=== PATIENT | female | born 1960 | race Caucasian/White ===

== ENCOUNTER → 2016-04-27 | Outpatient (CLI) | payer MEDICARE, OTHER ==
[~2016-04-27] MED LIST: AMIT50TA3 PO; BACL10TA PO; CARI350T20 PO; CLIN1CAP6 PO; CYMB60CA PO; DULO1CAP3 PO; ESTR.625 PO; FENTANYL PUMP; FURO1TAB62 PO; GABA400C5 PO; HYDR-3366 PO; IBUP800T23 PO; LACTCAP8 PO; MIGR4SPR; PERC10TA27 PO; SOMA350T PO; TOPA100T11 PO; TOPI1TAB31 PO; TOPI1TAB36 PO
[2016-04-27 14:50] LABS: C. DIFF EPI 027 PRESUMPTIVE NEGATIVE (NEGATIVE); C. DIFF TOXIN PCR NEGATIVE (NEGATIVE)
== END ==
LOC: CLAB 10:46
PROVIDERS: ATTEND Internal Medicine Infectious Disease
DX: R19.7 Diarrhea, unspecified (principal); L03.311 Cellulitis of abdominal wall; E11.9 Type 2 diabetes mellitus without complications; I10 Essential (primary) hypertension; T81.4XXA Infection following a procedure, initial encounter; Z79.2 Long term (current) use of antibiotics
CPT/HCPCS: 87493

== ENCOUNTER 2016-06-15 10:07 | Emergency (ER) | payer MEDICARE, MEDICAID ==
[~2016-06-15] VITALS: Ht 165.1 cm; Wt 72.5 kg
[~2016-06-15 10:07] MED LIST changes: -CYMB60CA PO; -FENTANYL PUMP; -PERC10TA27 PO; -SOMA350T PO; -TOPA100T11 PO; -TOPI1TAB36 PO
[2016-06-15 10:10] VITALS: BP 160/77; PULSE 54; RESP 24; TEMP 97.8; O2SAT 100
[2016-06-15] MEDS ORDERED: CYMB60CA PO (10:56)
[2016-06-15] MEDS ORDERED: FENTANYL PUMP (10:56)
[2016-06-15] MEDS ORDERED: SOMA350T PO (10:56)
[2016-06-15] MEDS ORDERED: DIATRIZOATE MEGLUM/DIATRIZOATE SOD 9 ML CUP ONE ×2 (11:30→12:01)
[2016-06-15] MEDS ORDERED: SODIUM CHLOR 0.9% 1000 ML INJ 1,000 ML IV SCH (11:39)
[2016-06-15 11:43] VITALS: RESP 18; O2SAT 98
[2016-06-15] MEDS ORDERED: SODIUM CHLORIDE 0.9% FLUSH 10 ML FLUSH IV FLUSH PRN (11:45)
[2016-06-15 12:08] LABS: AUTOMATED NEUTROPHIL # 1.9 TH/MM3 (1.8-7.7); BASOPHIL % 0.6 % (0.0-2.0); EOSINOPHIL # 0.2 TH/MM3 (0-0.4); EOSINOPHIL % 4.6 % (0.0-4.0); HEMATOCRIT 37.2 % (35.0-46.0); HEMO FLAGS DIFF FINAL; LYMPHOCYTE # 1.4 TH/MM3 (1.0-4.8); MEAN CELL VOLUME 84.2 FL (80.0-100.0); MEAN CORPUSCULAR HEMOGLOBIN 27.1 PG (27.0-34.0); MEAN CORPUSCULAR HGB CONC 32.2 % (32.0-36.0); MONO % 7.6 % (0.0-8.0); NEUT % 50.2 % (16.0-70.0); PLATELET COUNT 189 TH/MM3 (150-450); RED BLOOD COUNT 4.42 MIL/MM3 (4.00-5.30); RED CELL DISTRIBUTION WIDTH 13.7 % (11.6-17.2); WHITE BLOOD COUNT 3.7 TH/MM3 (4.0-11.0)
--- NOTE | 2016-06-15 12:21 | PD ---
HPI Chief Complaint: Abdominal Pain Time Seen by Provider: 10:56 Travel History International Travel<30 days: No Contact w/Intl Traveler<30days: No Traveled to known affect area: No History of Present Illness HPI The patient is a 56-year-old female who presents to the emergency department for abdominal pain. The patient states she developed abdominal pain approximately one week ago in the left inguinal region. The patient originally thought she had enlarged lymph nodes and saw her infectious disease doctor. The patient was then referred to see a surgeon, however, followed up with Dr. Novak. The patient states she was advised she might have a femoral hernia/ inguinal hernia and was referred to see surgery, Dr. Wiggins. However, the patient is unable to get an appointment with Dr. Wiggins until next month. The patient states the pain is located in the left inguinal region, worse with standing and walking, slightly alleviated at rest. She states occasionally there is a bulge in the affected area that will reduce when she lays supine. The patient was referred to the emergency department today for continuing pain with inability to see surgery until next month. She denies any dysuria, frequency, or urgency. She does have a history of a pain pump located in the left aspect of her abdomen with previous infection, but denies any redness or pain around the pain pump. PFSH Past Medical History Asthma: Yes Autoimmune Disease: No Blood Disorders: No Anxiety: Yes Depression: Yes Heart Rhythm Problems: No Cancer: No Cardiovascular Problems: No High Cholesterol: No Chemotherapy: No Chest Pain: No Congestive Heart Failure: No COPD: Yes Cerebrovascular Accident: No Diabetes: Yes (HX- NOT ON MEDS- RESOLVED WITH BY-PASS SX) Diminished Hearing: No Endocrine: Yes Gastrointestinal Disorders: Yes GERD: Yes Glaucoma: No Genitourinary: Yes Headaches: Yes Hepatitis: No Hiatal Hernia: Yes (GERD, ULCER DIS.) Herniated Disk: Yes (DEGENERAT DISC DISEASE) Hypertension: Yes Immune Disorder: No Implanted Vascular Access Dvce: Yes Kidney Stones: No Musculoskeletal: Yes (DEGENERATIVE DISC DISEASE) Neurologic: Yes Psychiatric: Yes Reproductive: No Respiratory: Yes (ASTHMA ; SLEEP APNEA) Migraines: No Myocardial Infarction: No Radiation Therapy: No Renal Failure: No Seizures: No Sickle Cell Disease: No Sleep Apnea: Yes (BI PAP AT HS) Thyroid Disease: No Ulcer: Yes (REMOTE IN PAST) : 4 Para: 1 Miscarriage: 2 : 0 Past Surgical History Abdominal Surgery: Yes (LAP. NUVIA, LAP GASTRIC BYPASS) AICD: No Appendectomy: No Arteriovenous Shunt: No Body Medical Devices: PLATES AND SCREWS IN CERVICAL SPINE Cardiac Surgery: No Section: Yes Cholecystectomy: Yes Ear Surgery: No Endocrine Surgery: No Eye Surgery: No Genitourinary Surgery: No Gynecologic Surgery: Yes (C SECTION ; HYSTEROSCOPY AND D&C) Hysterectomy: Yes Insulin Pump: No Joint Replacement: No Neurologic Surgery: Yes (BACK SX 2CERVICAL FUSION AND DECOMPRESSION) Oral Surgery: No Pacemaker: No Other Surgery: Yes Social History Alcohol Use: No Tobacco Use: Yes (1 PACK PER WEEK) Substance Use: No Allergies-Medications (Allergen,Severity, Reaction): Coded Allergies: Contrast Media (Verified Allergy, Severe, LOSS OF CONCIOUSNESS, 06/15/16) Demerol (Verified Allergy, Severe, DECREASE IN VITAL SIGNS, 06/15/16) Dilaudid (Verified Allergy, Severe, 06/15/16) Gadodiamide (Verified Allergy, Severe, Patient states elevates blood pressure, 06/15/16) Morphine (Verified Allergy, Severe, 06/15/16) Reglan (Verified Allergy, Severe, RASH, 06/15/16) Dane (Verified Allergy, Mild, Rash, 06/15/16) Reported Meds & Prescriptions Reported Meds & Active Scripts Active Topiramate 100 Mg Tab 100 Mg PO TID Lasix (Furosemide) 20 Mg Tab 20 Mg PO DAILY Reported [Fentanyl Pump] Soma (Carisoprodol) 350 Mg Tab 350 Mg PO QID PRN Cymbalta DR (Duloxetine HCl) 60 Mg Capdr 60 Mg PO DAILY [place] (Hydrocodone-Acetaminophen) 10-325 Mg Tab 1 Tab PO Q6H PRN Premarin (Estrogens Conjugated) 0.625 Mg Tab 0.625 Mg PO DAILY Baclofen 10 Mg Tab 10 Mg PO Q8HR PRN Gabapentin 400 Mg Cap 400 Cap PO TID PRN Review of Systems Except as stated in HPI: all other systems reviewed are Neg General / Constitutional: No: Fever Cardiovascular: No: Chest Pain or Discomfort Respiratory: No: Shortness of Breath Gastrointestinal: Positive: Abdominal Pain, No: Nausea, Vomiting Genitourinary: Positive: Pelvic Pain (left inguinal pain) Musculoskeletal: Positive: Edema (intermittent dependent edema to the lower legs) Physical Exam Narrative GENERAL: Awake, alert, pleasant 56-year-old female who appears her stated age and is in no acute respiratory distress. SKIN: Focused skin assessment warm/dry. HEAD: Atraumatic. Normocephalic. EYES: Pupils equal and round. No scleral icterus. No injection or drainage. ENT: No nasal bleeding or discharge. Mucous membranes pink and moist. NECK: Trachea midline. No JVD. CARDIOVASCULAR: Regular rate and rhythm. No murmur appreciated. RESPIRATORY: No accessory muscle use. Clear to auscultation. Breath sounds equal bilaterally. GASTROINTESTINAL: Abdomen soft, non-tender, nondistended. Pain pump noted left aspect of the abdomen. No obvious femoral hernia. Pelvic: Exam was performed in the presence of a female nurse. Inguinal examination reveals cordlike structure in the left mid inguinal region which is tender to palpation, does not appear fixed underlying tissue. When patient stands up and Valsalva's, there is no obvious bulge in the left inguinal region. MUSCULOSKELETAL: No obvious deformities. No clubbing. No cyanosis. No edema. NEUROLOGICAL: Awake and alert. No obvious cranial nerve deficits. Motor grossly within normal limits. Normal speech. PSYCHIATRIC: Appropriate mood and affect; insight and judgment normal. Data Data Last Documented VS Vital Signs Date Time Temp Pulse Resp B/P Pulse Ox O2 Delivery O2 Flow Rate FiO2 06/15/16 14:09 92 18 163/70 98 Room Air 06/15/16 10:10 97.8 Orders Diatrizoate Liq ( Gastrolupis Liq) (06/15/16 11:30) Complete Blood Count With Diff (06/15/16 11:39) Comprehensive Metabolic Panel (06/15/16 11:39) Lipase (06/15/16 11:39) Urinalysis - C+S If Indicated (06/15/16 11:39) Iv Access Insert/Monitor (06/15/16 11:39) Ecg Monitoring (06/15/16 11:39) Oximetry (06/15/16 11:39) Sodium Chlor 0.9% 1000 Ml Inj (Ns 1000 M (06/15/16 11:39) Sodium Chloride 0.9% Flush (Ns Flush) (06/15/16 11:45) Ct Abd/Pel W/O Iv Contrast (06/15/16 ) Oral Contrast - Adult (06/15/16 11:42) Diatrizoate Liq ([place] Liq) (06/15/16 12:01) Oxycodone-Acetamin 10-325 Mg (Percocet 1 (06/15/16 13:15) Labs Laboratory Tests Test 06/15/16 11:53 White Blood Count 3.7 TH/MM3 Red Blood Count 4.42 MIL/MM3 Hemoglobin 12.0 GM/DL Hematocrit 37.2 % Mean Corpuscular Volume 84.2 FL Mean Corpuscular Hemoglobin 27.1 PG Mean Corpuscular Hemoglobin 32.2 % Concent Red Cell Distribution Width 13.7 % Platelet Count 189 TH/MM3 Mean Platelet Volume 7.9 FL Neutrophils (%) (Auto) 50.2 % Lymphocytes (%) (Auto) 37.0 % Monocytes (%) (Auto) 7.6 % Eosinophils (%) (Auto) 4.6 % Basophils (%) (Auto) 0.6 % Neutrophils # (Auto) 1.9 TH/MM3 Lymphocytes # (Auto) 1.4 TH/MM3 Monocytes # (Auto) 0.3 TH/MM3 Eosinophils # (Auto) 0.2 TH/MM3 Basophils # (Auto) 0.0 TH/MM3 CBC Comment DIFF FINAL Differential Comment Urine Color YELLOW Urine Turbidity CLEAR Urine pH 7.0 Urine Specific [place] 1.027 Urine Protein TRACE mg/dL Urine Glucose (UA) NEG mg/dL Urine Ketones NEG mg/dL Urine Occult Blood NEG Urine Nitrite NEG Urine Bilirubin NEG Urine Urobilinogen 2.0 MG/DL Urine Leukocyte Esterase NEG Urine RBC 1 /hpf Urine WBC LESS THAN 1 /hpf Urine Squamous Epithelial <1 /hpf Cells Urine Mucus FEW /lpf Microscopic Urinalysis Comment CULT NOT INDICATED Sodium Level 142 MEQ/L Potassium Level 3.8 MEQ/L Chloride Level 107 MEQ/L Carbon Dioxide Level 28.6 MEQ/L Anion Gap 6 MEQ/L Blood Urea Nitrogen 16 MG/DL Creatinine 0.55 MG/DL Estimat Glomerular Filtration 114 ML/MIN Rate Random Glucose 91 MG/DL Calcium Level 8.6 MG/DL Total Bilirubin 0.4 MG/DL Aspartate Amino Transf 25 U/L (AST/SGOT) Alanine Aminotransferase 23 U/L (ALT/SGPT) Alkaline Phosphatase 105 U/L Total Protein 6.5 GM/DL Albumin 3.5 GM/DL Lipase 101 U/L [facility] Medical Decision Making Medical Screen Exam Complete: Yes Emergency Medical Condition: Yes Medical Record Reviewed: Yes Interpretation(s) Laboratory Tests Test 06/15/16 11:53 White Blood Count 3.7 TH/MM3 Red Blood Count 4.42 MIL/MM3 Hemoglobin 12.0 GM/DL Hematocrit 37.2 % Mean Corpuscular Volume 84.2 FL Mean Corpuscular Hemoglobin 27.1 PG Mean Corpuscular Hemoglobin 32.2 % Concent Red Cell Distribution Width 13.7 % Platelet Count 189 TH/MM3 Mean Platelet Volume 7.9 FL Neutrophils (%) (Auto) 50.2 % Lymphocytes (%) (Auto) 37.0 % Monocytes (%) (Auto) 7.6 % Eosinophils (%) (Auto) 4.6 % Basophils (%) (Auto) 0.6 % Neutrophils # (Auto) 1.9 TH/MM3 Lymphocytes # (Auto) 1.4 TH/MM3 Monocytes # (Auto) 0.3 TH/MM3 Eosinophils # (Auto) 0.2 TH/MM3 Basophils # (Auto) 0.0 TH/MM3 CBC Comment DIFF FINAL Differential Comment Urine Color YELLOW Urine Turbidity CLEAR Urine pH 7.0 Urine Specific [place] 1.027 Urine Protein TRACE mg/dL Urine Glucose (UA) NEG mg/dL Urine Ketones NEG mg/dL Urine Occult Blood NEG Urine Nitrite NEG Urine Bilirubin NEG Urine Urobilinogen 2.0 MG/DL Urine Leukocyte Esterase NEG Urine RBC 1 /hpf Urine WBC LESS THAN 1 /hpf Urine Squamous Epithelial <1 /hpf Cells Urine Mucus FEW /lpf Microscopic Urinalysis Comment CULT NOT INDICATED Sodium Level 142 MEQ/L Potassium Level 3.8 MEQ/L Chloride Level 107 MEQ/L Carbon Dioxide Level 28.6 MEQ/L Anion Gap 6 MEQ/L Blood Urea Nitrogen 16 MG/DL Creatinine 0.55 MG/DL Estimat Glomerular Filtration 114 ML/MIN Rate Random Glucose 91 MG/DL Calcium Level 8.6 MG/DL Total Bilirubin 0.4 MG/DL Aspartate Amino Transf 25 U/L (AST/SGOT) Alanine Aminotransferase 23 U/L (ALT/SGPT) Alkaline Phosphatase 105 U/L Total Protein 6.5 GM/DL Albumin 3.5 GM/DL Lipase 101 U/L CT of the abdomen and pelvis reveals no evidence of inguinal hernia. Nonspecific gas pattern which may represent ileus or gastroenteritis. Postsurgical changes status post gastric surgery with small hiatal hernia. Differential Diagnosis Differential diagnosis includes lymphadenopathy, femoral hernia, inguinal hernia , tendinitis, inguinal strain, inguinal sprain. Narrative Course IV was established, labs were drawn and sent, and the patient was placed on cardiac telemetry monitoring and continuous pulse oximetry monitoring. The patient did not have an obvious femoral hernia upon physical examination, has intermittent pain and bulging which she cannot reproduce, therefore, CT of the abdomen and pelvis with oral contrast was ordered. Laboratory evaluation is unremarkable. CT of the abdomen and pelvis is negative for any evidence of inguinal hernia. The patient did request pain medication, currently has a fentanyl pump in place, therefore, was administered Percocet. CT reveals no acute surgical emergency, patient will be referred to see Gen. surgery on an outpatient basis. The patient states she has an appointment with Dr. Wiggins on June 26. Therefore, a courtesy call was placed to Dr. Wiggins at 2:31 PM. I discussed the patient with Dr. Wiggins at 2:35 PM who agrees the patient can follow-up outpatient. I will write for Percocet for pain above and beyond her normal pain, she is advised if she has pain to rest, apply ice and/or heat to the affected area. Patient agrees and understands. Diagnosis Primary Impression: Left inguinal pain Patient Instructions: General Instructions Additional Instructions: Please provide a patient a copy of her CT results and lab results at discharge. Follow-up with Dr. Wiggins as directed. If pain persists, rest, apply ice and/ or heat, and Percocet as needed for pain. Med/Other Pt SpecificInfo: Prescription(s) given Scripts Oxycodone-Acetaminophen (Percocet)10-325 mg Tab1 Tab PO Q6H PRN (PAIN) #15 TAB Ref 0 Prov:Josesito Mariscal MD 06/15/16 Disposition: 01 DISCHARGE HOME Condition: Stable Josesito Mariscal MD Jun 15, 2016 12:21
[2016-06-15 12:29] LABS: BLOOD, URINE NEG (NEG); COMMENT (UR) CULT NOT INDICATED; CULTURE IF INDICATED CULT NOT INDICATED; GLUCOSE,URINE NEG (NEG); KETONE, URINE NEG (NEG); MUCUS URINE FEW /lpf (OCC); NITRITE,URINE NEG (NEG); SQUAMOUS EPITHELIAL CELL URINE <1 /hpf (0-5); URINE COLOR YELLOW (YELLW/STRAW)
[2016-06-15 12:33] LABS: ANION GAP 6 MEQ/L (5-15); AST (GOT) 25 U/L (15-37); BICARBONATE 28.6 MEQ/L (21.0-32.0); BLOOD UREA NITROGEN 16 MG/DL (7-18); CHLORIDE 107 MEQ/L (98-107); GLOMERULAR FILTRATION RATE 114 ML/MIN (>89); POTASSIUM 3.8 MEQ/L (3.5-5.1); SODIUM (NA) 142 MEQ/L (136-145)
[2016-06-15 12:36] LABS: ALKALINE PHOSPHATASE 105 U/L (45-117); ALT (GPT) 23 U/L (10-53); TOTAL BILIRUBIN ADULT 0.4 MG/DL (0.2-1.0)
[2016-06-15] MEDS ORDERED: oxyCODONE/ACETAMINOPHEN 10 MG/325 MG TAB PO ONE (13:15)
[2016-06-15 14:09] VITALS: BP 163/70; PULSE 92; RESP 18; O2SAT 98
--- NOTE | 2016-06-15 14:25 | RADRPT ---
EXAM DATE/TIME: 06/15/2016 13:44 [facility] COMPARISON: No previous studies available for comparison. INDICATIONS : Left inguinal pain, possible hernia. ORAL CONTRAST: No oral contrast ingested. RADIATION DOSE: 9.96 CTDIvol (mGy) MEDICAL HISTORY : Hypertension. Hernia, hiatal. SURGICAL HISTORY : Cholecystectomy. Gastric bypass. section. ENCOUNTER: Initial ACUITY: 1 day PAIN SCALE: 0/10 LOCATION: Left pelvis TECHNIQUE: Volumetric scanning of the abdomen and pelvis was performed. Using automated exposure control and ad justment of the mA and/or kV according to patient size, radiation dose was kept as low as reasonably achievable to obtain optimal diagnostic quality images. FINDINGS: LOWER LUNGS: The visualized lower lungs are clear. LIVER: Homogeneous density without lesion. There is no dilation of the biliary tree. No calcified gallston es. SPLEEN: Normal size without lesion. PANCREAS: Within normal limits. KIDNEYS: Normal in size and shape. There is no mass, stone, or hydronephrosis. ADRENAL GLANDS: Within normal limits. VASCULAR: There is no aortic aneurysm. BOWEL/MESENTERY: Postsurgical changes are noted status post gastric surgery. There is a small hiatal hernia. There is a nonspecific bowel gas pattern with multiple loops of nondilated air-containing small bowel multiple small air-fluid levels. There is no free air or fluid. Only the mid and portions of the distal small bowel are opacified. There are multiple unopacified loops of bowel including the entire colon. There is a lack of mesenteric fat between the bowel loops limiting visualization as well. There is streak artifact from a stimulator device. ABDOMINAL WALL: Within normal limits. RETROPERITONEUM: There is no lymphadenopathy. BLADDER: No wall thickening or mass. REPRODUCTIVE: Within normal limits. INGUINAL: There is no lymphadenopathy or hernia. MUSCULOSKELETAL: Within normal limits for patient age. CONCLUSION: 1. No evidence of inguinal hernia. 2. Nonspecific gas pattern which may represent ileus or gastroenteritis. 3. Postsurgical changes status post gastric surgery with small hiatal hernia. Kaleb Ogden MD on June 15, 2016 at 14:19 Board Certified Radiologist. This report was verified electronically.
[2016-06-15] MEDS ORDERED: PERC10TA27 PO (14:49)
[2016-08-01] MEDS ORDERED: TOPI1TAB36 PO (10:13)
[2016-08-10] MEDS ORDERED: TOPA100T11 PO (10:02)
== END 2016-06-15 15:28 | disposition home or self-care (01) ==
LOC: NEPE 10:07
DX: R10.32 Left lower quadrant pain (principal)
CPT/HCPCS: 74176; 80053; 81001; 83690; 85025; 99284; J7030; Q9963

== ENCOUNTER → 2016-07-12 | Outpatient (CLI) | payer MEDICARE ==
[~2016-07-12] MED LIST changes: -AMIT50TA3 PO; -CARI350T20 PO; -CLIN1CAP6 PO; +CYMB60CA PO; -DULO1CAP3 PO; +FENTANYL PUMP; -IBUP800T23 PO; -LACTCAP8 PO; -MIGR4SPR; +PERC10TA27 PO; +SOMA350T PO; +TOPA100T11 PO; +TOPI1TAB36 PO
[2016-07-12 12:42] LABS: HEMATOCRIT 39.1 % (35.0-46.0); MEAN CORPUSCULAR HGB CONC 32.2 % (32.0-36.0); PLATELET COUNT 213 TH/MM3 (150-450); RED BLOOD COUNT 4.65 MIL/MM3 (4.00-5.30); RED CELL DISTRIBUTION WIDTH 13.2 % (11.6-17.2); REVIEW FLAG FINAL; WHITE BLOOD COUNT 3.8 TH/MM3 (4.0-11.0)
[2016-07-12 13:26] LABS: BICARBONATE 28.4 MEQ/L (21.0-32.0); FREE T3 2.2 PG/ML (2.18-3.98); FREE T4 1.04 NG/DL (0.76-1.46); POTASSIUM 4.5 MEQ/L (3.5-5.1)
== END ==
LOC: CLAB 12:04
PROVIDERS: ATTEND Internal Medicine Cardiovascular Disease
DX: R60.9 Edema, unspecified (principal); R59.1 Generalized enlarged lymph nodes; R06.02 Shortness of breath; R07.9 Chest pain, unspecified; K59.1 Functional diarrhea
CPT/HCPCS: 36415; 80048; 82378; 83880; 84439; 84443; 84481; 85027

== ENCOUNTER 2017-02-08 09:15 | Emergency (ER) | payer MEDICARE, MEDICAID ==
[~2017-02-08] VITALS: Ht 165.1 cm; Wt 68.0 kg
[~2017-02-08 09:15] MED LIST changes: -AUGM875T3 PO
[2017-02-08 09:16] VITALS: BP 184/82; PULSE 60; RESP 18; TEMP 98.4; O2SAT 97
--- NOTE | 2017-02-08 09:44 | PD ---
HPI Chief Complaint: Bite or Sting Time Seen by Provider: 09:42 Travel History International Travel<30 days: No Contact w/Intl Traveler<30days: No Traveled to known affect area: No History of Present Illness HPI 56-year-old female presents to emergency department with bites to her left thumb and right hand after being bit by a feral cat this morning. Patient states that she was trying to remove the cat from under the house when she was bit. Patient was able to contain the cat and plans on taking it to animal control. Patient states that the animal is feral so she does not know the vaccination status of the animal. She has seen the cat around the neighborhood and does not report any erratic behavior. Patient denies fever or chills. Patient takes multiple medications for her chronic back pain but otherwise states she is healthy. Patient does not know the last time she had a tetanus vaccination. PFSH Past Medical History Asthma: Yes Autoimmune Disease: No Blood Disorders: No Anxiety: Yes Depression: Yes Heart Rhythm Problems: No Cancer: No Cardiovascular Problems: No High Cholesterol: No Chemotherapy: No Chest Pain: No Congestive Heart Failure: No COPD: Yes Cerebrovascular Accident: No Diabetes: Yes (HX- NOT ON MEDS- RESOLVED WITH BY-PASS SX) Diminished Hearing: No Endocrine: Yes Gastrointestinal Disorders: Yes GERD: Yes Glaucoma: No Genitourinary: Yes Headaches: Yes Hepatitis: No Hiatal Hernia: Yes (GERD, ULCER DIS.) Herniated Disk: Yes (DEGENERAT DISC DISEASE) Immune Disorder: No Implanted Vascular Access Dvce: Yes Kidney Stones: No Musculoskeletal: Yes (DEGENERATIVE DISC DISEASE) Neurologic: Yes Psychiatric: Yes Reproductive: No Respiratory: Yes (ASTHMA ; SLEEP APNEA) Migraines: No Myocardial Infarction: No Radiation Therapy: No Renal Failure: No Seizures: No Sickle Cell Disease: No Sleep Apnea: Yes (BI PAP AT HS) Thyroid Disease: No Ulcer: Yes (REMOTE IN PAST) ?: Not : 4 Para: 1 Miscarriage: 2 : 0 Past Surgical History Abdominal Surgery: Yes (LAP. NUVIA, LAP GASTRIC BYPASS) AICD: No Appendectomy: No Arteriovenous Shunt: No Body Medical Devices: PLATES AND SCREWS IN CERVICAL SPINE Cardiac Surgery: No Section: Yes Cholecystectomy: Yes Ear Surgery: No Endocrine Surgery: No Eye Surgery: No Genitourinary Surgery: No Gynecologic Surgery: Yes (C SECTION ; HYSTEROSCOPY AND D&C) Hysterectomy: Yes Insulin Pump: No Joint Replacement: No Neurologic Surgery: Yes (LUMBAR LAMINECTOMY X 2; ANTERIOR CERVICAL FUSION) Oral Surgery: No Pacemaker: No Other Surgery: Yes Social History Alcohol Use: No Tobacco Use: No Substance Use: No Allergies-Medications (Allergen,Severity, Reaction): Coded Allergies: diatrizoate meglumine (Verified Allergy, Severe, LOSS OF CONCIOUSNESS, ) gadobenic acid (Verified Allergy, Severe, LOSS OF CONCIOUSNESS, 02/08/17) gadodiamide (Verified Allergy, Severe, Patient states elevates blood pressure, 02/08/17) gadoteridol (Verified Allergy, Severe, LOSS OF CONCIOUSNESS, 02/08/17) hydromorphone (Verified Allergy, Severe, 02/08/17) iodixanol (Verified Allergy, Severe, LOSS OF CONCIOUSNESS, 02/08/17) iohexol (Verified Allergy, Severe, LOSS OF CONCIOUSNESS, 02/08/17) meperidine (Verified Allergy, Severe, DECREASE IN VITAL SIGNS, 02/08/17) metoclopramide (Verified Allergy, Severe, RASH, 02/08/17) morphine (Verified Allergy, Severe, 02/08/17) terrance (Verified Allergy, Mild, Rash, 02/08/17) Reported Meds & Prescriptions Reported Meds & Active Scripts Active Augmentin (Amoxicillin-Clavulanate) 875-125 Mg Tab 1 Tab PO BID 10 Days Topamax (Topiramate) 100 Mg Tab 100 Mg PO TID Lisinopril 5 Mg Tab 5 Mg PO DAILY Percocet (Oxycodone-Acetaminophen) 10-325 mg Tab 1 Tab PO Q6H PRN Reported [Fentanyl Pump] Soma (Carisoprodol) 350 Mg Tab 350 Mg PO QID PRN Cymbalta DR (Duloxetine HCl) 60 Mg Capdr 60 Mg PO DAILY Gabapentin 400 Mg Cap 400 Cap PO TID PRN Review of Systems Except as stated in HPI: all other systems reviewed are Neg Physical Exam Narrative GENERAL: Well-developed well-nourished in no apparent distress SKIN: Focused skin assessment warm/dry. HEAD: Atraumatic. Normocephalic. EYES: Pupils equal and round. No scleral icterus. No injection or drainage. CARDIOVASCULAR: Regular rate and rhythm. No murmur appreciated. RESPIRATORY: No accessory muscle use. Clear to auscultation. Breath sounds equal bilaterally. GASTROINTESTINAL: Abdomen soft, non-tender, nondistended. MUSCULOSKELETAL: No obvious deformities. No clubbing. No cyanosis. No edema. Left thumb- puncture wounds versus avulsion of the distal aspect of thumb without nail involvement. No obvious foreign bodies No urinary edema or edema. Neurovascularly intact Right hand dorsal aspect- multiple areas of scratches versus bite on the dorsal aspect of the hand. No edema or erythema. No obvious foreign bodies. Neurovascularly intact NEUROLOGICAL: Awake and alert. No obvious cranial nerve deficits. Motor grossly within normal limits. Normal speech. PSYCHIATRIC: Appropriate mood and affect; insight and judgment normal. Data Data Last Documented VS Vital Signs Date Time Temp Pulse Resp B/P (MAP) Pulse Ox O2 Delivery O2 Flow Rate FiO2 02/08/17 09:16 98.4 60 18 184/82 (116) 97 Room Air Orders Orders Hand, Limited (2vws) (02/08/17 ) Finger ([id number]) (02/08/17 ) Tetanus/Diphtheria Tox Adult (Tetanus/Di (02/08/17 09:45) Amoxicil-Clavulanate (Augmentin) (02/08/17 09:45) Ed Discharge Order (02/08/17 10:20) MDM Medical Decision Making Medical Screen Exam Complete: Yes Emergency Medical Condition: Yes Differential Diagnosis Cat bite, avulsion, laceration Narrative Course 56-year-old female presents to emergency department with bites to her left thumb and right hand after being bit by a feral cat this morning. Patient states that she was trying to remove the cat from under the house when she was bit. Patient was able to contain the cat and plans on taking it to animal control. Patient states that the animal is feral so she does not know the vaccination status of the animal. She has seen the cat around the neighborhood and does not report any erratic behavior. Patient denies fever or chills. Patient takes multiple medications for her chronic back pain but otherwise states she is healthy. Patient does not know the last time she had a tetanus vaccination. Vital signs stable Physical exam findings consistent with multiple abrasions and minor puncture wounds of the hand and thumb. No evidence of cellulitis. X-rays without evidence of foreign bodies or acute process First dose of Augmentin given in the emergency department. Augmentin for outpatient use. Tetanus vaccination administered. I discussed this case with Dr. Astudillo who agrees with evaluation of the cat prior to initiation of rabies vaccination. Advised patient on red flag symptoms for infectious process. Strongly advised patient to follow-up in 2 days for wound check. Advised patient to follow up with primary care within 1 week. Diagnosis Primary Impression: Cat bite Qualified Codes: W55.01XA - Bitten by cat, initial encounter Referrals: Primary Care Physician Additional Instructions: Follow up with your primary care physician within 2-3 days. If you develops signs of infection such as increased swelling, redness or pain, return to the emergency department. Take antibiotics as prescribed. You may wash the areas as normal. Keep areas clean and dry. Scripts Amoxicillin-Clavulanate (Augmentin) 875-125 Mg Tab 1 TAB PO BID for Infection for 10 Days, #20 TAB 0 Refills Prov: Tamika Astudillo MD 02/08/17 Disposition: 01 DISCHARGE HOME Condition: Stable Brittany Dominguez Feb 08, 2017 09:44
[2017-02-08] MEDS ORDERED: TETANUS/DIPHTHERIA TOXOID ADULT 0.5 ML VIAL IM ONE (09:45)
[2017-02-08] MEDS ORDERED: AMOXICILLIN/CLAVULANATE K 875 MG TAB PO ONE (09:45)
[2017-02-08] MEDS ORDERED: AUGM875T3 PO (10:15)
--- NOTE | 2017-02-08 10:16 | RADRPT ---
EXAM DATE/TIME: 02/08/2017 09:57 [facility] COMPARISON: No previous studies available for comparison. INDICATIONS : Cat bite this morning, evaluate for foreign body. MEDICAL HISTORY : Hypertension. SURGICAL HISTORY : None. ENCOUNTER: Initial ACUITY: 1 day PAIN SCORE: 0/10 LOCATION: Right top of hand. FINDINGS: Two view examination of the right hand demonstrates no soft tissue swelling, dislocation, or fracture . There is marked narrowing of the second fourth and fifth DIP joints with a cyst in the fourth middl e phalangeal bone. No obvious erosions are identified in the carpus. No foreign object is seen.. Bon y mineralization is normal. CONCLUSION: Unremarkable limited examination of the right hand for acute injury. 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 Britton Rainey MD on February 08, 2017 at 10:13 Board Certified Radiologist. This report was verified electronically.
--- NOTE | 2017-02-08 10:16 | RADRPT ---
EXAM DATE/TIME: 02/08/2017 10:02 [facility] COMPARISON: No previous studies available for comparison. INDICATIONS : Cat bite this morning, evaluate for foreign body. MEDICAL HISTORY : Hypertension. SURGICAL HISTORY : None. ENCOUNTER: Initial ACUITY: 1 day PAIN SCORE: 5/10 LOCATION: Left thumb, proximal to nail bed. FINDINGS: Examination of the first digit of the left hand demonstrates no evidence of fracture or dislocation. No radiopaque foreign bodies are seen. The soft tissues are intact. CONCLUSION: Unremarkable examination of the left first finger. Britton Rainey MD on February 08, 2017 at 10:14 Board Certified Radiologist. This report was verified electronically.
== END 2017-02-08 11:17 | disposition home or self-care (01) ==
LOC: NEPK 09:15
DX: S61.052A Open bite of left thumb without damage to nail, initial encounter (principal); M54.9 Dorsalgia, unspecified; G89.29 Other chronic pain; F41.9 Anxiety disorder, unspecified; E11.9 Type 2 diabetes mellitus without complications; K21.9 Gastro-esophageal reflux disease without esophagitis; J44.9 Chronic obstructive pulmonary disease, unspecified; W55.01XA Bitten by cat, initial encounter; Z23 Encounter for immunization
CPT/HCPCS: 73120; 73140; 90471; 90714

== ENCOUNTER → 2017-02-08 | Outpatient (CLI) | payer MEDICARE ==
[~2017-02-08] MED LIST changes: +AUGM875T3 PO; -FURO1TAB62 PO; -HYDR-3366 PO; +LISI-519 PO; -TOPA100T11 PO; +TOPI100 PO; -TOPI1TAB31 PO; -TOPI1TAB36 PO
[2017-02-08 10:15] LABS: AUTOMATED NEUTROPHIL # 3.2 TH/MM3 (1.8-7.7); BASOPHIL % 0.7 % (0.0-2.0); EOSINOPHIL % 0.6 % (0.0-4.0); HEMATOCRIT 36.7 % (35.0-46.0); HEMO FLAGS DIFF FINAL; LYMPH % 29.6 % (9.0-44.0); LYMPHOCYTE # 1.5 TH/MM3 (1.0-4.8); MEAN CELL VOLUME 88.4 FL (80.0-100.0); MEAN CORPUSCULAR HEMOGLOBIN 31.2 PG (27.0-34.0); MEAN CORPUSCULAR HGB CONC 35.3 % (32.0-36.0); MONO % 5.8 % (0.0-8.0); NEUT % 63.3 % (16.0-70.0); PLATELET COUNT 299 TH/MM3 (150-450); RED BLOOD COUNT 4.15 MIL/MM3 (4.00-5.30); RED CELL DISTRIBUTION WIDTH 13.7 % (11.6-17.2)
[2017-02-08 10:20] LABS: BACTERIA, URINE RARE /hpf; BLOOD, URINE NEG (NEG); GLUCOSE,URINE NEG (NEG); KETONE, URINE NEG (NEG); MUCUS URINE FEW /lpf (OCC); NITRITE,URINE NEG (NEG); PH, URINE 7.5 (5.0-8.5); SQUAMOUS EPITHELIAL CELL URINE 3 /hpf (0-5); URINE COLOR YELLOW (YELLW/STRAW)
[2017-02-08 10:21] LABS: COMMENT (UR) CULT NOT INDICATED; CULTURE IF INDICATED CULT NOT INDICATED
[2017-02-08 10:34] LABS: ANION GAP 8 MEQ/L (5-15); AST (GOT) 23 U/L (15-37); BICARBONATE 27.2 MEQ/L (21.0-32.0); BLOOD UREA NITROGEN 16 MG/DL (7-18); CHLORIDE 110 MEQ/L (98-107); GLOMERULAR FILTRATION RATE 108 ML/MIN (>89); GLUCOSE,FASTING 81 MG/DL (74-99); POTASSIUM 3.8 MEQ/L (3.5-5.1); SODIUM (NA) 145 MEQ/L (136-145)
[2017-02-08 10:49] LABS: ALKALINE PHOSPHATASE 105 U/L (45-117); ALT (GPT) 28 U/L (10-53); FREE T4 0.85 NG/DL (0.76-1.46); HDL CHOLESTEROL 76.3 MG/DL (40.0-60.0); LDL CHOLESTEROL 48 MG/DL (0-99); TOTAL BILIRUBIN ADULT 0.3 MG/DL (0.2-1.0)
[2017-02-08 14:07] LABS: HEMOGLOBIN A1a 0.9 %; HEMOGLOBIN A1b 0.7 %; HEMOGLOBIN Ao 86.4 %; HEMOGLOBIN LA1C 1.9 %; HEMOGLOBIN P3 3.5 %
== END ==
LOC: CLAB 08:40
PROVIDERS: ATTEND Nurse Practitioner Family
DX: R53.83 Other fatigue (principal); R35.0 Frequency of micturition; R35.1 Nocturia; L57.8 Other skin changes due to chronic exposure to nonionizing radiation; R74.0 Nonspecific elevation of levels of transaminase and lactic acid dehydrogenase [LDH]
CPT/HCPCS: 36415; 80053; 80061; 81001; 82746; 83036; 84439; 84443; 85025

== ENCOUNTER 2017-06-09 14:35 | Emergency (ER) | payer MEDICARE, MEDICAID ==
[~2017-06-09] VITALS: Ht 162.6 cm; Wt 77.0 kg
[~2017-06-09 14:35] MED LIST changes: -BACL10TA PO; -ESTR.625 PO; -LISI-519 PO; +ZITHTAB PO
[2017-06-09 14:41] VITALS: BP 115/61; PULSE 59; RESP 17; TEMP 98.1; O2SAT 100
--- NOTE | 2017-06-09 15:58 | PD ---
HPI Chief Complaint: Skin Problem Time Seen by Provider: 15:51 Travel History International Travel<30 days: No Contact w/Intl Traveler<30days: No Traveled to known affect area: No History of Present Illness HPI 57-year-old female presents emergency department with laceration to the left lower anterior gurrola which occurred 1 week ago. Patient states she walked in the end of her bed frame causing a laceration to this area. She did not seek medical attention at that time. In the last several days has become more tender, swollen, and slightly erythematous. Patient has a scab in the area without discharge. She denies fever, chills, or other symptoms. Patient has multiple allergies, see list. PFSH Past Medical History Asthma: Yes Autoimmune Disease: No Blood Disorders: No Anxiety: Yes Depression: Yes Heart Rhythm Problems: No Cancer: No Cardiovascular Problems: No High Cholesterol: No Chemotherapy: No Chest Pain: No Congestive Heart Failure: No COPD: Yes Cerebrovascular Accident: No Diabetes: Yes (HX- NOT ON MEDS- RESOLVED WITH BY-PASS SX) Diminished Hearing: No Endocrine: Yes Gastrointestinal Disorders: Yes GERD: Yes Glaucoma: No Genitourinary: Yes Headaches: Yes Hepatitis: No Hiatal Hernia: Yes (GERD, ULCER DIS.) Herniated Disk: Yes (DEGENERAT DISC DISEASE) Immune Disorder: No Implanted Vascular Access Dvce: Yes Kidney Stones: No Musculoskeletal: Yes (DEGENERATIVE DISC DISEASE) Neurologic: Yes Psychiatric: Yes Reproductive: No Respiratory: Yes (ASTHMA ; SLEEP APNEA) Migraines: No Myocardial Infarction: No Radiation Therapy: No Renal Failure: No Seizures: No Sickle Cell Disease: No Sleep Apnea: Yes (BI PAP AT HS) Thyroid Disease: No Ulcer: Yes (REMOTE IN PAST) ?: Not : 4 Para: 1 Miscarriage: 2 : 0 Past Surgical History Abdominal Surgery: Yes (LAP. NUVIA, LAP GASTRIC BYPASS) AICD: No Appendectomy: No Arteriovenous Shunt: No Body Medical Devices: PLATES AND SCREWS IN CERVICAL SPINE Cardiac Surgery: No Section: Yes Cholecystectomy: Yes Ear Surgery: No Endocrine Surgery: No Eye Surgery: No Genitourinary Surgery: No Gynecologic Surgery: Yes (C SECTION ; HYSTEROSCOPY AND D&C) Hysterectomy: Yes Insulin Pump: No Joint Replacement: No Neurologic Surgery: Yes (LUMBAR LAMINECTOMY X 2; ANTERIOR CERVICAL FUSION) Oral Surgery: No Pacemaker: No Other Surgery: Yes Social History Alcohol Use: No Tobacco Use: No Substance Use: No Allergies-Medications (Allergen,Severity, Reaction): Coded Allergies: diatrizoate meglumine (Verified Allergy, Severe, LOSS OF CONCIOUSNESS, ) gadobenic acid (Verified Allergy, Severe, LOSS OF CONCIOUSNESS, 03/06/17) gadodiamide (Verified Allergy, Severe, Patient states elevates blood pressure, 03/06/17) gadoteridol (Verified Allergy, Severe, LOSS OF CONCIOUSNESS, 03/06/17) hydromorphone (Verified Allergy, Severe, 03/06/17) iodixanol (Verified Allergy, Severe, LOSS OF CONCIOUSNESS, 03/06/17) iohexol (Verified Allergy, Severe, LOSS OF CONCIOUSNESS, 03/06/17) meperidine (Verified Allergy, Severe, DECREASE IN VITAL SIGNS, 03/06/17) metoclopramide (Verified Allergy, Severe, RASH, 03/06/17) morphine (Verified Allergy, Severe, 03/06/17) terrance (Verified Allergy, Mild, Rash, 03/06/17) Reported Meds & Prescriptions Reported Meds & Active Scripts Active Ibuprofen 600 Mg Tab 600 Mg PO Q8H PRN 10 Days Bactrim DS (Sulfamethoxazole-Trimethoprim) 800-160 Mg Tab 1 Tab PO BID Keflex (Cephalexin) 500 Mg Cap 500 Mg PO Q8H 7 Days Zithromax Z-Hood (Azithromycin) 250 Mg Dspk 250 Mg PO DIRECTED 500 MG (2 tabs) day 1, then 1 tab days 2-5. Topamax (Topiramate) 100 Mg Tab 100 Mg PO TID Percocet (Oxycodone-Acetaminophen) 10-325 mg Tab 1 Tab PO Q6H PRN Reported [Fentanyl Pump] Soma (Carisoprodol) 350 Mg Tab 350 Mg PO QID PRN Cymbalta DR (Duloxetine HCl) 60 Mg Capdr 60 Mg PO DAILY Gabapentin 400 Mg Cap 400 Cap PO TID PRN Review of Systems Except as stated in HPI: all other systems reviewed are Neg General / Constitutional: No: Fever Eyes: No: Visual changes HENT: No: Headaches Cardiovascular: No: Chest Pain or Discomfort Respiratory: No: Shortness of Breath Gastrointestinal: No: Abdominal Pain Genitourinary: No: Dysuria Musculoskeletal: No: Pain Skin: Positive Lesions (See history of present illness), No Rash Neurologic: No: Weakness Psychiatric: No: Depression Endocrine: No: Polydipsia Hematologic/Lymphatic: No: Easy Bruising Physical Exam Narrative GENERAL: Patient appears in no acute distress per SKIN: Warm and dry. Normal color. Normal turgor. Patient has 2 half centimeter longitudinal healing laceration to the left lower gurrola with eschar noted. Surrounding area is somewhat indurated and erythematous. No sign of significant cellulitis noted. No sign of abscess. No streaking. HEAD: Atraumatic. Normocephalic. EYES: Pupils equal and round. No scleral icterus. No injection or drainage. ENT: No nasal bleeding or discharge. Mucous membranes pink and moist. Pharynx is clear. Airways patent NECK: Trachea midline. Supple and nontender per CARDIOVASCULAR: Regular rate and rhythm. RESPIRATORY: No accessory muscle use. Clear to auscultation. Breath sounds equal bilaterally. MUSCULOSKELETAL: Extremities without clubbing, cyanosis, or edema. No obvious deformities. NEUROLOGICAL: Awake and alert. No obvious cranial nerve deficits. Motor grossly within normal limits. Five out of 5 muscle strength in the arms and legs. Normal speech. PSYCHIATRIC: Appropriate mood and affect; insight and judgment normal. Data Data Last Documented VS Vital Signs Date Time Temp Pulse Resp B/P (MAP) Pulse Ox O2 Delivery O2 Flow Rate FiO2 06/09/17 14:41 98.1 59 17 115/61 (79) 100 MDM Medical Decision Making Medical Screen Exam Complete: Yes Emergency Medical Condition: Yes Differential Diagnosis Left lower gurrola laceration. Eschar. Cellulitis. Narrative Course Patient is placed on Keflex 500 mg 3 times daily 7 days. Patient is placed on Bactrim DS twice daily for 7 days. Patient is given ibuprofen 600 mg 3 times daily #30. Patient is to do wet to dry dressings as discussed. Patient to follow with primary care physician or return if symptoms warrant. Diagnosis Primary Impression: Laceration of left lower leg with infection Qualified Codes: S81.812A - Laceration without foreign body, left lower leg, initial encounter; L08.9 - Local infection of the skin and subcutaneous tissue, unspecified Patient Instructions: Cellulitis (ED), General Instructions Additional Instructions: Patient is placed on Keflex 500 mg 3 times daily 7 days. Patient is placed on Bactrim DS twice daily for 7 days. Patient is given ibuprofen 600 mg 3 times daily #30. Patient is to do wet to dry dressings as discussed. Patient to follow with primary care physician or return if symptoms warrant. Med/Other Pt SpecificInfo: Wound Care Scripts Ibuprofen (Ibuprofen) 600 Mg Tab 600 MG PO Q8H Y for PAIN for 10 Days, #30 TAB 0 Refills Prov: Gail Vo MD 06/09/17 Sulfamethoxazole-Trimethoprim (Bactrim DS) 800-160 Mg Tab 1 TAB PO BID for Infection, #14 TAB 0 Refills Prov: Gail Vo MD 06/09/17 Cephalexin (Keflex) 500 Mg Cap 500 MG PO Q8H for Infection for 7 Days, #21 CAP 0 Refills Prov: Gail Vo MD 06/09/17 Disposition: 01 DISCHARGE HOME Condition: Stable Sachin Alfaro Jun 09, 2017 15:58
[2017-06-09] MEDS ORDERED: IBUP-232 PO (15:59)
[2017-06-09] MEDS ORDERED: BACT800T5 PO (15:59)
[2017-06-09] MEDS ORDERED: CEPH-460 PO (15:59)
== END 2017-06-09 16:19 | disposition home or self-care (01) ==
LOC: NEPD 14:35
DX: S81.812A Laceration without foreign body, left lower leg, initial encounter (principal); L08.9 Local infection of the skin and subcutaneous tissue, unspecified; E11.9 Type 2 diabetes mellitus without complications; K21.9 Gastro-esophageal reflux disease without esophagitis; G47.30 Sleep apnea, unspecified; F41.8 Other specified anxiety disorders; W22.03XA Walked into furniture, initial encounter; Y93.01 Activity, walking, marching and hiking; Y92.003 Bedroom of unspecified non-institutional (private) residence as the place of occurrence of the external cause; Z87.09 Personal history of other diseases of the respiratory system; Z87.39 Personal history of other diseases of the musculoskeletal system and connective tissue; Z87.19 Personal history of other diseases of the digestive system; Z87.448 Personal history of other diseases of urinary system; Z86.69 Personal history of other diseases of the nervous system and sense organs
CPT/HCPCS: 99283

== ENCOUNTER 2017-06-14 15:06 | Emergency (ER) | payer MEDICARE, MEDICAID ==
[~2017-06-14 15:06] MED LIST changes: +BACT800T5 PO; +CEPH-460 PO; +IBUP-232 PO
[2017-06-14 15:33] VITALS: BP 169/94; PULSE 63; RESP 20; TEMP 98; O2SAT 100
--- NOTE | 2017-06-14 15:53 | PD ---
HPI Chief Complaint: Musculoskeletal Complaint Time Seen by Provider: 15:47 Travel History International Travel<30 days: No Contact w/Intl Traveler<30days: No Traveled to known affect area: No History of Present Illness HPI 57-year-old female presents for evaluation of the left leg pretibial erythematous skin associated with a skin wound in the left pretibial region. She reports that 3 weeks ago she hit her left gurrola against a metal bed frame and had a laceration. She was seen here on June 09 where she was seen here and found to have her pretibial region. She has no pain in the posterior left calf or thigh musculature. She has had occasional chills but no objective fevers. No purulent drainage. Last tetanus vaccination within 5 years. No other complaints. PFSH Past Medical History Asthma: Yes Autoimmune Disease: No Blood Disorders: No Anxiety: Yes Depression: Yes Heart Rhythm Problems: No Cancer: No Cardiovascular Problems: No High Cholesterol: No Chemotherapy: No Chest Pain: No Congestive Heart Failure: No COPD: Yes Cerebrovascular Accident: No Diabetes: Yes (HX- NOT ON MEDS- RESOLVED WITH BY-PASS SX) Diminished Hearing: No Endocrine: Yes Gastrointestinal Disorders: Yes GERD: Yes Glaucoma: No Genitourinary: Yes Headaches: Yes Hepatitis: No Hiatal Hernia: Yes (GERD, ULCER DIS.) Herniated Disk: Yes (DEGENERAT DISC DISEASE) Immune Disorder: No Implanted Vascular Access Dvce: Yes Kidney Stones: No Musculoskeletal: Yes (DEGENERATIVE DISC DISEASE) Neurologic: Yes Psychiatric: Yes Reproductive: No Respiratory: Yes (ASTHMA ; SLEEP APNEA) Migraines: No Myocardial Infarction: No Radiation Therapy: No Renal Failure: No Seizures: No Sickle Cell Disease: No Sleep Apnea: Yes (BI PAP AT HS) Thyroid Disease: No Ulcer: Yes (REMOTE IN PAST) : 4 Para: 1 Miscarriage: 2 : 0 Past Surgical History Abdominal Surgery: Yes (LAP. NUVIA, LAP GASTRIC BYPASS) AICD: No Appendectomy: No Arteriovenous Shunt: No Body Medical Devices: PLATES AND SCREWS IN CERVICAL SPINE Cardiac Surgery: No Section: Yes Cholecystectomy: Yes Ear Surgery: No Endocrine Surgery: No Eye Surgery: No Genitourinary Surgery: No Gynecologic Surgery: Yes (C SECTION ; HYSTEROSCOPY AND D&C) Hysterectomy: Yes Insulin Pump: No Joint Replacement: No Neurologic Surgery: Yes (LUMBAR LAMINECTOMY X 2; ANTERIOR CERVICAL FUSION) Oral Surgery: No Pacemaker: No Other Surgery: Yes Social History Alcohol Use: No Tobacco Use: No Substance Use: No Allergies-Medications (Allergen,Severity, Reaction): Coded Allergies: diatrizoate meglumine (Verified Allergy, Severe, LOSS OF CONCIOUSNESS, ) gadobenic acid (Verified Allergy, Severe, LOSS OF CONCIOUSNESS, 06/14/17) gadodiamide (Verified Allergy, Severe, Patient states elevates blood pressure, 06/14/17) gadoteridol (Verified Allergy, Severe, LOSS OF CONCIOUSNESS, 06/14/17) hydromorphone (Verified Allergy, Severe, 06/14/17) iodixanol (Verified Allergy, Severe, LOSS OF CONCIOUSNESS, 06/14/17) iohexol (Verified Allergy, Severe, LOSS OF CONCIOUSNESS, 06/14/17) meperidine (Verified Allergy, Severe, DECREASE IN VITAL SIGNS, 06/14/17) metoclopramide (Verified Allergy, Severe, RASH, 06/14/17) morphine (Verified Allergy, Severe, 06/14/17) terrance (Verified Allergy, Mild, Rash, 06/14/17) Reported Meds & Prescriptions Reported Meds & Active Scripts Active Ibuprofen 600 Mg Tab 600 Mg PO Q8H PRN 10 Days Topamax (Topiramate) 100 Mg Tab 100 Mg PO TID Percocet (Oxycodone-Acetaminophen) 10-325 mg Tab 1 Tab PO Q6H PRN Reported [Fentanyl Pump] Soma (Carisoprodol) 350 Mg Tab 350 Mg PO QID PRN Cymbalta DR (Duloxetine HCl) 60 Mg Capdr 60 Mg PO DAILY Gabapentin 400 Mg Cap 400 Cap PO TID PRN Review of Systems Except as stated in HPI: all other systems reviewed are Neg Physical Exam Narrative GENERAL: Well-developed well-nourished female no acute distress SKIN: Warm and dry. There is a scabbed linear wound on the anterior left gurrola with surrounding erythema. No induration or fluctuance. HEAD: Atraumatic. Normocephalic. EYES: Pupils equal and round. No scleral icterus. No injection or drainage. ENT: No nasal bleeding or discharge. Mucous membranes pink and moist. NECK: Trachea midline. No JVD. CARDIOVASCULAR: Regular rate and rhythm. No murmur appreciated. RESPIRATORY: No accessory muscle use. Clear to auscultation. Breath sounds equal bilaterally. GASTROINTESTINAL: Abdomen soft, non-tender, nondistended. Hepatic and splenic margins not palpable. MUSCULOSKELETAL: Skin as noted above. There is no lower extremity edema. The compartments of the left leg are wholly soft and nontender. There is no pain with active or passive dorsi or plantar flexion of the left ankle. 2+ dorsalis pedis pulse bilaterally. NEUROLOGICAL: Awake and alert. No obvious cranial nerve deficits. Motor grossly within normal limits. Normal speech. Data Data Last Documented VS Vital Signs Date Time Temp Pulse Resp B/P (MAP) Pulse Ox O2 Delivery O2 Flow Rate FiO2 06/14/17 15:33 98.0 63 20 169/94 (119) 100 Orders Orders Tibia/Fibula (Ap/Lat) (06/14/17 ) Us Leg Venous Doppler (06/14/17 15:48) Complete Blood Count With Diff (06/14/17 15:48) Basic Metabolic Panel (Bmp) (06/14/17 15:48) Act Partial Throm Time (Ptt) (06/14/17 15:48) Prothrombin Time / Inr (Pt) (06/14/17 15:48) Lactic Acid Sepsis Protocol (06/14/17 15:48) Blood Culture (06/14/17 15:48) Asp:No Reaction To [facility]/Vanc (Asp Crit (06/14/17 17:30) Asp: Does Not Meet Inpt Admit (Asp Crit: (06/14/17 17:30) Asp: Iv Antibiotics Admit Only (Asp Crit (06/14/17 17:30) Asp: Location Of [facility] Admin (Asp Crit: (06/14/17 17:30) [place]ancin Inj (Dalvance Inj) (06/14/17 17:30) Ed Discharge Order (06/14/17 17:35) Labs Laboratory Tests Test 06/14/17 15:50 White Blood Count 3.5 TH/MM3 Red Blood Count 4.18 MIL/MM3 Hemoglobin 12.4 GM/DL Hematocrit 36.9 % Mean Corpuscular Volume 88.3 FL Mean Corpuscular Hemoglobin 29.5 PG Mean Corpuscular Hemoglobin Concent 33.5 % Red Cell Distribution Width 12.6 % Platelet Count 218 TH/MM3 Mean Platelet Volume 8.0 FL Neutrophils (%) (Auto) 51.5 % Lymphocytes (%) (Auto) 34.9 % Monocytes (%) (Auto) 6.9 % Eosinophils (%) (Auto) 5.8 % Basophils (%) (Auto) 0.9 % Neutrophils # (Auto) 1.8 TH/MM3 Lymphocytes # (Auto) 1.2 TH/MM3 Monocytes # (Auto) 0.2 TH/MM3 Eosinophils # (Auto) 0.2 TH/MM3 Basophils # (Auto) 0.0 TH/MM3 CBC Comment DIFF FINAL Differential Comment Prothrombin Time 10.1 SEC Prothromb Time International Ratio 1.0 RATIO Activated Partial Thromboplast Time 26.4 SEC Blood Urea Nitrogen 19 MG/DL Creatinine 0.63 MG/DL Random Glucose 95 MG/DL Calcium Level 8.2 MG/DL Sodium Level 144 MEQ/L Potassium Level 4.2 MEQ/L Chloride Level 110 MEQ/L Carbon Dioxide Level 27.5 MEQ/L Anion Gap 7 MEQ/L Estimat Glomerular Filtration Rate 97 ML/MIN Lactic Acid Level 0.5 mmol/L [facility] Medical Decision Making Medical Screen Exam Complete: Yes Emergency Medical Condition: Yes Medical Record Reviewed: Yes Differential Diagnosis Cellulitis, abscess, osteomyelitis, tibial fracture, DVT, no evidence of compartment syndrome Narrative Course There is no evidence of compartment syndrome. Patient has pretibial cellulitis secondary to a laceration that was sustained 3 weeks ago on the left gurrola. Symptoms are worse despite being on Bactrim and Keflex as an outpatient. Plan is for lab work, left leg ultrasound, left tibia-fibula x-ray. Ultrasound left lower extremity CONCLUSION: Normal examination. Prominent lymph node in the left inguinal region measuring 3.6 x 2.5 x 0.8 cm. Lab work is reassuring. At this point time the plan will be to treat the patient with Dalvance for her left lower extremity as she is not septic however she has worsening cellulitis despite outpatient therapy. She is agreeable to this plan. Discussed signs and symptoms that would warrant returning to the emergency room. Stable for discharge. Diagnosis Primary Impression: Cellulitis of left lower extremity Additional Instructions: Warm compresses to the affected area several times a day 15 minutes at a time. Follow-up with primary care physician and return for any acutely new or worsening symptoms. Med/Other Pt SpecificInfo: No Change to Meds Disposition: 01 DISCHARGE HOME Condition: Stable Bud Jimenez Jun 14, 2017 15:53
[2017-06-14 16:26] LABS: AUTOMATED NEUTROPHIL # 1.8 TH/MM3 (1.8-7.7); BASOPHIL % 0.9 % (0.0-2.0); EOSINOPHIL # 0.2 TH/MM3 (0-0.4); EOSINOPHIL % 5.8 % (0.0-4.0); HEMATOCRIT 36.9 % (35.0-46.0); HEMOGLOBIN 12.4 GM/DL (11.6-15.3); LYMPH % 34.9 % (9.0-44.0); LYMPHOCYTE # 1.2 TH/MM3 (1.0-4.8); MEAN CELL VOLUME 88.3 FL (80.0-100.0); MEAN CORPUSCULAR HEMOGLOBIN 29.5 PG (27.0-34.0); MEAN CORPUSCULAR HGB CONC 33.5 % (32.0-36.0); MONO % 6.9 % (0.0-8.0); MONOCYTE # 0.2 TH/MM3 (0-0.9); NEUT % 51.5 % (16.0-70.0); PLATELET COUNT 218 TH/MM3 (150-450); RED BLOOD COUNT 4.18 MIL/MM3 (4.00-5.30); RED CELL DISTRIBUTION WIDTH 12.6 % (11.6-17.2); WHITE BLOOD COUNT 3.5 TH/MM3 (4.0-11.0)
[2017-06-14 16:37] LABS: PROTHROMBIN TIME - PATIENT 10.1 SEC (9.8-11.6)
--- NOTE | 2017-06-14 16:37 | RADRPT ---
EXAM DATE/TIME: 06/14/2017 16:25 [facility] COMPARISON: No previous studies available for comparison. INDICATIONS : Left tibia pain, redness, and swelling after infection of laceration. MEDICAL HISTORY : None. SURGICAL HISTORY : None. ENCOUNTER: Initial ACUITY: 3 weeks PAIN SCORE: 8/10 LOCATION: Left distal tibia. FINDINGS: Two view examination of the left tibia demonstrates no evidence of fracture or dislocation. Bony min eralization is normal. The soft tissue structures are intact. Periosteal reaction on the fibula, renetta rich chronic CONCLUSION: Unremarkable examination of the left tibia. Britton Rainey MD on June 14, 2017 at 16:33 Board Certified Radiologist. This report was verified electronically.
[2017-06-14 16:42] LABS: BICARBONATE 27.5 MEQ/L (21.0-32.0); CALCIUM 8.2 MG/DL (8.5-10.1); CREATININE 0.63 MG/DL (0.50-1.00)
--- NOTE | 2017-06-14 17:10 | RADRPT ---
EXAM DATE/TIME: 06/14/2017 16:47 [facility] COMPARISON: No previous studies available for comparison. INDICATIONS : Left leg pain. MEDICAL HISTORY : Hypertension. Chronic obstructive pulmonary disease. Gastroesophageal reflux disease. Neck pain. A ngina. Sleep apnea. Ulcer. Hiatal hernia. Urinary tract infection. Arthritis. Herniated disk. Diabete s. Depression. Anxiety. SURGICAL HISTORY : Cholecystectomy. section. Gastric bypass. Hysteroscopy. Dilation and curettage. ENCOUNTER: Initial ACUITY: 2 weeks PAIN SCORE: 2/10 LOCATION: Left leg. TECHNIQUE: Venous ultrasound of the leg was performed from the inguinal ligament to the proximal calf. Real-oxana e, color Doppler and spectral tracing, compression and augmentation techniques were used. FINDINGS: There is normal compressibility of the deep venous system from the inguinal region to the proximal ca lf. No echogenic clot is seen in the lumen of the common femoral, femoral, popliteal, and posterior tibial veins. There is a normal response of the venous system to proximal and distal augmentation an d respiration. CONCLUSION: Normal examination. Prominent lymph node in the left inguinal region measuring 3.6 x 2.5 x 0.8 cm. Britton Rainey MD on June 14, 2017 at 17:07 Board Certified Radiologist. This report was verified electronically.
[2017-06-14] MEDS ORDERED: DALBAVANCIN INJ 1,500 MG in DEXTROSE 5% IN WATE 500 ML INJ 500 ML IV STA ×2 (17:30)
[2017-06-14] MEDS ORDERED: ASP: Location of Dalbavancin administration OTHER ONE (17:30)
[2017-06-14] MEDS ORDERED: ASP: No known hypersensitivity to Vanco, Telavancin, Dalbavancin OTHER ONE (17:30)
[2017-06-14] MEDS ORDERED: ASP: Only reason for admit - IV antibiotics OTHER ONE (17:30)
[2017-06-14] MEDS ORDERED: ASP: Does not meet inpatient admission criteria OTHER ONE (17:30)
[2017-06-14 19:19] VITALS: BP_SYST 157; BP_DIAS 7; BP_DIAS 77; PULSE 58; RESP 20; O2SAT 99
[2017-06-14 19:49] VITALS: BP 144/90
== END 2017-06-14 20:35 | disposition home or self-care (01) ==
LOC: NEPC 15:06
DX: L03.116 Cellulitis of left lower limb (principal); M79.605 Pain in left leg; F41.9 Anxiety disorder, unspecified; F32.9 Major depressive disorder, single episode, unspecified; J44.9 Chronic obstructive pulmonary disease, unspecified; E11.9 Type 2 diabetes mellitus without complications; K21.9 Gastro-esophageal reflux disease without esophagitis; J45.909 Unspecified asthma, uncomplicated; G47.30 Sleep apnea, unspecified
CPT/HCPCS: 73590; 80048; 83605; 85025; 85610; 85730; 87040; 93971; 96365; 99285; J0875; J7060

== ENCOUNTER 2017-07-31 11:00 | Emergency (ER) | payer MEDICARE, MEDICAID ==
[~2017-07-31] VITALS: Ht 165.1 cm; Wt 76.0 kg
[~2017-07-31 11:00] MED LIST changes: -BACT800T5 PO; -CEPH-460 PO; -ZITHTAB PO
[2017-07-31 11:10] VITALS: BP 136/68; PULSE 64; RESP 16; TEMP 98.7; O2SAT 96
[2017-07-31] MEDS ORDERED: ESTR.625 PO (12:02)
[2017-07-31] MEDS ORDERED: BACL10TA PO (12:02)
--- NOTE | 2017-07-31 12:09 | PD ---
HPI Chief Complaint: Complaint Time Seen by Provider: 11:58 Travel History International Travel<30 days: No Contact w/Intl Traveler<30days: No Traveled to known affect area: No History of Present Illness HPI This is a 57-year-old female presents for evaluation of hematuria. Symptoms started this morning. She reports blood and blood clots in her urine stream when she urinated this morning. She denies any vaginal bleeding. She denies any rectal bleeding. Symptoms are mild, aggravated by urinating with no relieving factors. Denies dysuria, flank pain, abdominal pain, fevers or chills , she is not on any blood thinning medications. She reports past surgical history of partial hysterectomy. Her primary care physician is Tarah Garcia. No other complaints at this time. PFSH Past Medical History Hx Anticoagulant Therapy: No Asthma: Yes Autoimmune Disease: No Blood Disorders: No Anxiety: Yes Depression: Yes Heart Rhythm Problems: No Cancer: No Cardiovascular Problems: No High Cholesterol: No Chemotherapy: No Chest Pain: No Congestive Heart Failure: No COPD: Yes Cerebrovascular Accident: No Diabetes: Yes (HX- NOT ON MEDS- RESOLVED WITH BY-PASS SX) Patient Takes Glucophage: No Diminished Hearing: No Endocrine: Yes Gastrointestinal Disorders: Yes GERD: Yes Glaucoma: No Genitourinary: Yes Headaches: Yes Hepatitis: No Hiatal Hernia: Yes (GERD, ULCER DIS.) Herniated Disk: Yes (DEGENERAT DISC DISEASE) Immune Disorder: No Implanted Vascular Access Dvce: Yes Kidney Stones: No Musculoskeletal: Yes (DEGENERATIVE DISC DISEASE) Neurologic: Yes Psychiatric: Yes Reproductive: No Respiratory: Yes (ASTHMA ; SLEEP APNEA) Immunizations Current: Yes Migraines: No Myocardial Infarction: No Radiation Therapy: No Renal Failure: No Seizures: No Sickle Cell Disease: No Sleep Apnea: Yes (BI PAP AT HS) Thyroid Disease: No Ulcer: Yes (REMOTE IN PAST) Tetanus Vaccination: < 5 Years Influenza Vaccination: Yes : 4 Para: 1 Miscarriage: 2 : 0 Past Surgical History Abdominal Surgery: Yes (LAP. NUVIA, LAP GASTRIC BYPASS) AICD: No Appendectomy: No Arteriovenous Shunt: No Body Medical Devices: PLATES AND SCREWS IN CERVICAL SPINE Cardiac Surgery: No Section: Yes Cholecystectomy: Yes Ear Surgery: No Endocrine Surgery: No Eye Surgery: No Genitourinary Surgery: No Gynecologic Surgery: Yes (C SECTION ; HYSTEROSCOPY AND D&C) Hysterectomy: Yes Insulin Pump: No Joint Replacement: No Neurologic Surgery: Yes (LUMBAR LAMINECTOMY X 2; ANTERIOR CERVICAL FUSION) Oral Surgery: No Pacemaker: No Other Surgery: Yes Social History Alcohol Use: No Tobacco Use: No Substance Use: No Allergies-Medications (Allergen,Severity, Reaction): Coded Allergies: diatrizoate meglumine (Verified Allergy, Severe, LOSS OF CONCIOUSNESS, 02/05) gadobenic acid (Verified Allergy, Severe, LOSS OF CONCIOUSNESS, 07/31/17) gadodiamide (Verified Allergy, Severe, Patient states elevates blood pressure, 07/31/17) gadoteridol (Verified Allergy, Severe, LOSS OF CONCIOUSNESS, 07/31/17) hydromorphone (Verified Allergy, Severe, 07/31/17) iodixanol (Verified Allergy, Severe, LOSS OF CONCIOUSNESS, 07/31/17) iohexol (Verified Allergy, Severe, LOSS OF CONCIOUSNESS, 07/31/17) meperidine (Verified Allergy, Severe, DECREASE IN VITAL SIGNS, 07/31/17) metoclopramide (Verified Allergy, Severe, RASH, 07/31/17) morphine (Verified Allergy, Severe, 07/31/17) terrance (Verified Allergy, Mild, Rash, 07/31/17) Reported Meds & Prescriptions Reported Meds & Active Scripts Active Macrobid (Nitrofurantoin Monohydrate Macrocrystals) 100 Mg Capsule 100 Mg PO BID 7 Days Ibuprofen 600 Mg Tab 600 Mg PO Q8H PRN 10 Days Topamax (Topiramate) 100 Mg Tab 100 Mg PO TID Percocet (Oxycodone-Acetaminophen) 10-325 mg Tab 1 Tab PO Q6H PRN Reported Premarin (Estrogens Conjugated) 0.625 Mg Tab 0.625 Mg PO DAILY Baclofen 10 Mg Tab 10 Mg PO TID PRN [Fentanyl Pump] Soma (Carisoprodol) 350 Mg Tab 350 Mg PO QID PRN Cymbalta DR (Duloxetine HCl) 60 Mg Capdr 60 Mg PO DAILY Gabapentin 400 Mg Cap 400 Cap PO TID PRN Review of Systems Except as stated in HPI: all other systems reviewed are Neg Physical Exam Narrative GENERAL: Well-developed well-nourished female no acute distress SKIN: Warm and dry. HEAD: Atraumatic. Normocephalic. EYES: Pupils equal and round. No scleral icterus. No injection or drainage. ENT: No nasal bleeding or discharge. Mucous membranes pink and moist. NECK: Trachea midline. No JVD. CARDIOVASCULAR: Regular rate and rhythm. No murmur appreciated. RESPIRATORY: No accessory muscle use. Clear to auscultation. Breath sounds equal bilaterally. GASTROINTESTINAL: Abdomen soft, non-tender, nondistended. Hepatic and splenic margins not palpable. Pain pump noted subcutaneous left lower abdomen. No CVA tenderness. MUSCULOSKELETAL: No obvious deformities. No clubbing. No cyanosis. No edema. NEUROLOGICAL: Awake and alert. No obvious cranial nerve deficits. Motor grossly within normal limits. Normal speech. Data Data Last Documented VS Vital Signs Date Time Temp Pulse Resp B/P (MAP) Pulse Ox O2 Delivery O2 Flow Rate FiO2 07/31/17 11:10 98.7 64 16 136/68 (90) 96 Orders Orders Complete Blood Count With Diff (07/31/17 11:15) Comprehensive Metabolic Panel (07/31/17 11:15) Prothrombin Time / Inr (Pt) (07/31/17 11:15) Act Partial Throm Time (Ptt) (07/31/17 11:15) Urinalysis - C+S If Indicated (07/31/17 11:15) Urine Culture (07/31/17 11:32) Ceftriaxone Inj (Rocephin Inj) (07/31/17 13:00) Ed Discharge Order (07/31/17 12:55) Labs Laboratory Tests Test 07/31/17 11:32 White Blood Count 5.5 TH/MM3 Red Blood Count 4.39 MIL/MM3 Hemoglobin 12.6 GM/DL Hematocrit 38.2 % Mean Corpuscular Volume 86.9 FL Mean Corpuscular Hemoglobin 28.8 PG Mean Corpuscular Hemoglobin Concent 33.2 % Red Cell Distribution Width 12.7 % Platelet Count 187 TH/MM3 Mean Platelet Volume 8.6 FL Neutrophils (%) (Auto) 64.3 % Lymphocytes (%) (Auto) 24.2 % Monocytes (%) (Auto) 5.3 % Eosinophils (%) (Auto) 5.5 % Basophils (%) (Auto) 0.7 % Neutrophils # (Auto) 3.5 TH/MM3 Lymphocytes # (Auto) 1.3 TH/MM3 Monocytes # (Auto) 0.3 TH/MM3 Eosinophils # (Auto) 0.3 TH/MM3 Basophils # (Auto) 0.0 TH/MM3 CBC Comment DIFF FINAL Differential Comment Prothrombin Time 10.0 SEC Prothromb Time International Ratio 1.0 RATIO Activated Partial Thromboplast Time 25.7 SEC Urine Color YELLOW Urine Turbidity HAZY Urine pH 6.5 Urine Specific Malin 1.025 Urine Protein 30 mg/dL Urine Glucose (UA) NEG mg/dL Urine Ketones NEG mg/dL Urine Occult Blood MOD Urine Nitrite NEG Urine Bilirubin NEG Urine Urobilinogen 2.0 MG/DL Urine Leukocyte Esterase MOD Urine RBC /hpf Urine WBC 72 /hpf Urine Squamous Epithelial Cells 1 /hpf Urine Bacteria MANY /hpf Urine Mucus FEW /lpf Microscopic Urinalysis Comment CULTURE INDICATED Blood Urea Nitrogen 15 MG/DL Creatinine 0.58 MG/DL Random Glucose 82 MG/DL Total Protein 6.4 GM/DL Albumin 3.6 GM/DL Calcium Level 8.3 MG/DL Alkaline Phosphatase 105 U/L Aspartate Amino Transf (AST/SGOT) 31 U/L Alanine Aminotransferase (ALT/SGPT) 48 U/L Total Bilirubin 0.4 MG/DL Sodium Level 143 MEQ/L Potassium Level 4.1 MEQ/L Chloride Level 108 MEQ/L Carbon Dioxide Level 26.5 MEQ/L Anion Gap 9 MEQ/L Estimat Glomerular Filtration Rate 107 ML/MIN [facility] Medical Decision Making Medical Screen Exam Complete: Yes Emergency Medical Condition: Yes Medical Record Reviewed: Yes Differential Diagnosis Painless gross hematuria-differential diagnosis includes bladder carcinoma, renal carcinoma, ureteral stone, hemorrhagic cystitis Narrative Course Lab work, urinalysis have been ordered. CBC is unremarkable. CMP is unremarkable. PT/PTT is unremarkable. Urinalysis is consistent with urinary tract infection with many bacteria, 72 WBCs, moderate leukocytes, moderate blood. Culture has been sent. The patient was given a dose of IV Rocephin and she will be discharged with Macrobid. Recommended recheck in 1-2 weeks with primary care physician for repeat urinalysis. Diagnosis Primary Impression: Hemorrhagic cystitis Additional Instructions: Medication as prescribed. Stay well hydrated and well-nourished. As discussed , follow-up in 1-2 weeks with primary care physician for repeat urinalysis. Return for any emergent medical conditions. Med/Other Pt SpecificInfo: Prescription(s) given Scripts Nitrofurantoin Monohydrate Macrocrystals (Macrobid) 100 Mg Capsule 100 MG PO BID for Infection for 7 Days, #14 CAP 0 Refills Prov: Josesito Mariscal MD 07/31/17 Disposition: 01 DISCHARGE HOME Condition: Stable Bud Jimenez Jul 31, 2017 12:09
[2017-07-31 12:26] LABS: AUTOMATED NEUTROPHIL # 3.5 TH/MM3 (1.8-7.7); BASOPHIL % 0.7 % (0.0-2.0); EOSINOPHIL # 0.3 TH/MM3 (0-0.4); EOSINOPHIL % 5.5 % (0.0-4.0); HEMATOCRIT 38.2 % (35.0-46.0); HEMOGLOBIN 12.6 GM/DL (11.6-15.3); LYMPH % 24.2 % (9.0-44.0); LYMPHOCYTE # 1.3 TH/MM3 (1.0-4.8); MEAN CELL VOLUME 86.9 FL (80.0-100.0); MEAN CORPUSCULAR HEMOGLOBIN 28.8 PG (27.0-34.0); MEAN CORPUSCULAR HGB CONC 33.2 % (32.0-36.0); MEAN PLATELET VOLUME 8.6 FL (7.0-11.0); MONO % 5.3 % (0.0-8.0); MONOCYTE # 0.3 TH/MM3 (0-0.9); NEUT % 64.3 % (16.0-70.0); PLATELET COUNT 187 TH/MM3 (150-450); RED BLOOD COUNT 4.39 MIL/MM3 (4.00-5.30); RED CELL DISTRIBUTION WIDTH 12.7 % (11.6-17.2); WHITE BLOOD COUNT 5.5 TH/MM3 (4.0-11.0)
[2017-07-31 12:37] LABS: ALBUMIN 3.6 GM/DL (3.4-5.0); AST (GOT) 31 U/L (15-37); BICARBONATE 26.5 MEQ/L (21.0-32.0); BLOOD UREA NITROGEN 15 MG/DL (7-18); CALCIUM 8.3 MG/DL (8.5-10.1); CHLORIDE 108 MEQ/L (98-107); CREATININE 0.58 MG/DL (0.50-1.00); GLOMERULAR FILTRATION RATE 107 ML/MIN (>89); GLUCOSE,RANDOM 82 MG/DL (74-106); SODIUM (NA) 143 MEQ/L (136-145)
[2017-07-31 12:42] LABS: ALKALINE PHOSPHATASE 105 U/L (45-117); ALT (GPT) 48 U/L (10-53); TOTAL BILIRUBIN ADULT 0.4 MG/DL (0.2-1.0); TOTAL PROTEIN 6.4 GM/DL (6.4-8.2)
[2017-07-31 12:44] LABS: BACTERIA, URINE MANY /hpf; BILIRUBIN, URINE NEG (NEG); BLOOD, URINE MOD (NEG); GLUCOSE,URINE NEG (NEG); KETONE, URINE NEG (NEG); MUCUS URINE FEW /lpf (OCC); NITRITE,URINE NEG (NEG); PH, URINE 6.5 (5.0-8.5); SQUAMOUS EPITHELIAL CELL URINE 1 /hpf (0-5); URINE COLOR YELLOW (YELLW/STRAW); URINE LEUKOCYTE ESTERASE MOD (NEG)
[2017-07-31] MEDS ORDERED: MACR100C2 PO (12:52)
[2017-07-31] MEDS ORDERED: cefTRIAXone INJ 1,000 MG in SODIUM CHLORIDE 0.9% INJ 100 ML IV ONE (13:00)
== END 2017-07-31 14:13 | disposition home or self-care (01) ==
LOC: NEPC 11:00
DX: N30.91 Cystitis, unspecified with hematuria (principal); F32.9 Major depressive disorder, single episode, unspecified
CPT/HCPCS: 80053; 81001; 85025; 85610; 85730; 87077; 87086; 87186; 96374; 99284; J0696